=== PATIENT | male | born 1980 | race Caucasian/White ===

== ENCOUNTER 2019-08-10 12:17 | Inpatient (IN) | payer OTHER ==
[~2019-08-10] VITALS: Ht 182.9 cm; Wt 105.0 kg
[2019-08-10] VITALS (7 sets, daily range): BP systolic 90–113; BP diastolic 48–79; Ht 182.9 cm; Wt 105.0 kg
--- NOTE | 2019-08-10 12:29 | NUR ---
BROUGHT IN BY AMBULANCE, PARAMED STATED PT WAS UNRESPONSIVE AND PULSLESS AND APNEIC,CPR STARTED ,WAS GIVEN 12 MGS NARCAN,UK=[id number] ON EMS ARRIVAL PT WAS FOUND MUMBLING AND SPONTANOUS RESPIRATION, ON ARRIVAL TO ER AWAKE ALERT, ANSWERS QUESTIONS PROPERLY.CALCULATION REVIEWER IN ST,RESP. EASY,SKIN WARM AND DRY TO TOUCH,
--- NOTE | 2019-08-10 12:35 | NUR ---
STATED FEELS NAUSEATED,
[2019-08-10 13:21] LABS: BASOPHIL % 0.5 % (0-2); PLATELET COUNT 172 x10^3mcL (130-400); RED CELL DISTRIBUTION WIDTH 12.9 % (11.5-14.5)
--- NOTE | 2019-08-10 13:34 | NUR ---
POST BLOOD GASES PLACE VIA RESPIRONIC VENTILATOR WITH 100%OXYGEN,EPAP 6,RESPIRATORY RATE 18. 8
--- NOTE | 2019-08-10 13:52 | NUR ---
VOMITTED BROWNISH SECRETIONS IN LARGE AMOUNTS,MEDICATED WITH ZOFRAN
[2019-08-10 13:53] LABS: CALCIUM 8.8 mg/dL (8.5-10.1); CARBON DIOXIDE 24.5 mmol/L (21-32); CHLORIDE SERUM 101 mmol/L (98-107); GFR1 > 60 mL/min; GLUCOSE SERUM 116 mg/dL (74-106); POTASSIUM SERUM 5.4 mmol/L (3.5-5.1); SODIUM SERUM 138 mmol/L (136-145)
[2019-08-10 13:58] LABS: ALBUMIN 4.1 g/dL (3.4-5.0); ALKALINE PHOSPHATASE 48 U/L (46-116); ALT/SGPT 121 U/L (16-63); AST/SGOT 78 U/L (15-37); BILIRUBIN TOTAL 0.56 mg/dL (0.20-1.00); TOTAL PROTEIN, SERUM 7.8 g/dL (6.4-8.2)
--- NOTE | 2019-08-10 14:30 | NUR ---
PT TAKEN TO CT, VIA RETHEL.
--- NOTE | 2019-08-10 14:35 | NUR ---
PT ON FULL CM WHILE IN CT, I ACCOMPANIED.
--- NOTE | 2019-08-10 14:40 | NUR ---
PT THRASHING IN CT, STS REPORTS PAIN TO BACK, ATTEMPTED TO DEESCALATE PT MULTIPLE TIMES WITH NO SUCCESS. DR JOHNSON MADE AWARE STS OK TO MEDICATE PT WITH 2MG IVP ATIVAN.
--- NOTE | 2019-08-10 14:47 | NUR ---
PT RETURNED TO BED 1, DR JOHNSON AT BEDSIDE FOR INTUBATION, RT MING, JULIAN DONOVAN, AND EMT KATINA AT BEDSIDE. PT ON FULL CM, CONTINUES TO GRUNT IN PAIN.
--- NOTE | 2019-08-10 15:15 | NUR ---
RECEIVED INTUBATED,RESTLESS IN BED,BLOOD TINGED SPUTUM SUCTIONED VIA ETT, ON DIPROVAN 15MCG/KGM/MINUTENGTUBE PATENT, GARCIA DRAINING,
--- NOTE | 2019-08-10 15:30 | NUR ---
VERY RESTLESS IN BED,SOFT RESTRAINTS APPLIED, MEDICATED WITH VERSED,
[2019-08-10 16:05] LABS: UA SPECIFIC GRAVITY 1.015 (1.005-1.035); microscopic required? YES; urine erythrocyte 3+ (NEGATIVE)
--- NOTE | 2019-08-10 16:17 | NUR ---
DR SAUER PULMONARY DR IN ER TO EVALUATE
[2019-08-10 16:22] LABS: AMPHETAMINE QUAL UR NONE DETECTED (See below)
--- NOTE | 2019-08-10 17:08 | NUR ---
UNDER STERILE FIELD CVP LINE INSERTED BY DR PATTERSON IN RT JUGULAR VEIN,,MEDICATED WITH VERSED 2 MGS PRIOR TO INSERTION CVP LINE
--- NOTE | 2019-08-10 17:11 | NUR ---
DR JAMES INSERTING ARTERIAL LINE IN RT FEMEROL ARTERY,
--- NOTE | 2019-08-10 17:19 | NUR ---
DURING ARTERIAL LINE INSERTION PT STARTED TO MOVE MEDICATED WITH VERSED 2MGS
--- NOTE | 2019-08-10 17:41 | NUR ---
UNSUCCESSFUL INSERTION OF ARTERIAL LINE IN RT FEMORAL ARTERY,NOW TRYING LT SIDE
--- NOTE | 2019-08-10 17:48 | NUR ---
MOVING LEGS DURING PROCEDURE, MEDICATED WITH 2 MGS VERSED
--- NOTE | 2019-08-10 19:40 | NUR ---
RECEIVED PT FROM ER ACCOMPANIED BY SONJA RN AND NIKO RN, NONI EMT, MEL, RT. PT TRANSFERRED TO ICU BED 2 WITH FULL ASSIST, ATTACHED TO FULL SHOP TEACHER AND CONTINUOUS PULSE OXIMETRY. PT BED HOB ELEVATED 30 DEGREES, BED AT LOWEST SETTTING, CALL LIGHT WITHIN REACH. RECEIVED PT INTUBATED AND SEDATED ON PROPOFOL GTT @ 10 MCG/KG/MIN AND VERSED GTT @ 1 MG/HR, RSS=4 FROM ER. PT RESPONDS TO TACTILE STIMULI, ABLE TO RESPOND TO SIMPLE COMMANDS. PUPILS 3MM SLUGGISH RESPONSE TO LIGHT B/L, PERRLA. PT INTUBATED TO VENT, INTACT/SECURED. LIJ, TLC, CDI, AWAITING CONFIRMATION FROM XRAY. NGT TO LEFT NARE INTACT/SECURED, BROWN DRAINAGE NOTED IN TUBING. TRACHEA MIDLINE, NO DRAINAGE TO EENT.7.5 ETT, 23 LL. ORAL CARE PROVIDED PER VAP PROTOCOL. VENT SETTINGS PCV-AC MODE, FIO2 80%, RATE 16, PEEP 7, PRESSURE 22. LUNG SOUNDS COARSE BILATERALLY. CHEST RISE/FALL SYMMETRIC, E/U VENTED BREATHING.S1/S2 SOUNDS. NO S/S OF CHEST PAIN.SKIN COLOR CONSISTENT WITH ETHNICITY, CAP REFILL <3 X4 EXTREMITIES, PULSES PALPABLE WEAK TO BUE/BLE.GEN WEAKNESS, BED REST. NO CONTRACTURES/DEFORMITIES. PT ON TURN SCHEDULE Q2H. SOFT WRIST RESTRAINTS TO BUE, SKIN/PULSE WNL, PT REACHES FOR ETT AND EQUIPMENT WHEN OFF. JOINTS INTACT.HYPOACTIVE BOWEL SOUNDS X4 QUADRANTS, ABD SOFT/ROUND. NO BM.F/C DRAINING TO GRAVITY YANCY URINE INTACT/SECURED FROM ER. NO PENILE EDEMA OR DISCHARGE NOTED.SKIN INTACT, WARM/DRY TO TOUCH. NOTED GAUZE TO RIGHT AND LEFT FEMORAL SITES, S/P UNSUCCESSFUL ATTEMPTS FROM DR. PATTERSON, NO ACTIVE BLEED.PT SEDATED, UNABLE TO FULLY ASSESS. 2 CIM GUARDS AT BEDSIDE PER PROTOCOL. NO S/S OF N/V. WILL CONT TO MONITOR.
--- NOTE | 2019-08-10 19:40 | NUR ---
CT SCAN DONE ON THE WAY TO ICU.DIPROVAN TITRATED DOWN TO 10 MCG/KGM/MINT
[2019-08-10] MEDS ORDERED: NIFEDIPINE60 MG PO (19:42)
[2019-08-10] MEDS ORDERED: LASIX20 MG PO (19:42)
--- NOTE | 2019-08-10 20:10 | NUR ---
CONTACTED DR. HARPER ON PT'S CENTRAL LINE PLACEMENT AND NGT PLACMENT, PER DR. MEREDITH FRASER TO USE. INFORMED HIM ON PT'S BROWN DRAINAGE TO NGT, PER DR. MEREDITH FRASER TO INITIATE TUBE FEEDING.
--- NOTE | 2019-08-10 20:12 | NUR ---
FENTANYL GTT INITATED @ 1 MCG/KG/HR TO ACHEIVE RSS=4. PROPOFOL GTT D/CD AT THIS TIME.
--- NOTE | 2019-08-10 21:14 | NUR ---
CONTACTED DR. PATTERSON VIA TELEPHONE ON PT'S ABG. PER DR. PATTERSON ORDER ABG @ 0843 08/11/19, CHANGE RATE TO 18 AND PRESSURE CHANGE TO 24. RELAYED INFORMATION TO RT DE LA ROSA.
--- NOTE | 2019-08-10 21:19 | NUR ---
RT DE LA ROSA AT BEDSIDE CHANGED VENT RATE TO 18 AND PRESSURE TO 24.
--- NOTE | 2019-08-10 21:19 | NUR ---
DECREASED FIO2 FROM 80% TO 60% POST ABG RESULTS. PER INCREASED RATE FROM 16 TO 18 AND PC FROM 22 TO 24.
--- NOTE | 2019-08-10 22:46 | NUR ---
NORMAL SALINE GTT INITATED @ 150 CC/HR.
[2019-08-11] VITALS (18 sets, daily range): BP systolic 84–111; BP diastolic 45–64
--- NOTE | 2019-08-11 00:30 | NUR ---
VERSED TITRATED TO 2 MG/HR, RSS=1, PT RESTLESS AT THIS TIME.
--- NOTE | 2019-08-11 00:35 | NUR ---
TUBE FEEDING VITAL AF 1.2 INITIATED @ 10 ML/HR, FWF 50 ML Q 4 H, PER MD ORDER.
--- NOTE | 2019-08-11 04:35 | NUR ---
TUBE FEEDING VITAL AF 1.2 TITRATED TO 20 ML/HR, GRV=0 ML. NO S/S OF N/V.
--- NOTE | 2019-08-11 04:55 | NUR ---
PROVIDED PT WITH TOTAL BED BATH, GARCIA CARE, CHUCKS, GOWN, LINEN CHANGED.
[2019-08-11 05:05] LABS: BASOPHIL % 0.2 % (0-2); RED CELL DISTRIBUTION WIDTH 13.3 % (11.5-14.5)
[2019-08-11 05:40] LABS: PLATELET COUNT 110 x10^3mcL (130-400)
[2019-08-11 05:54] LABS: CARBON DIOXIDE 26.2 mmol/L (21-32); POTASSIUM SERUM 4.1 mmol/L (3.5-5.1)
[2019-08-11 05:55] LABS: CALCIUM 7.5 mg/dL (8.5-10.1); CREATININE SERUM 1.4 mg/dL (0.7-1.3)
--- NOTE | 2019-08-11 07:15 | NUR ---
GAVE REPORT TO PANFILO JORDAN. UPDATES PROVIDED, QUESTIONS ANSWERED.
--- NOTE | 2019-08-11 07:42 | NUR ---
AFTER REVIEW OF MEDICAL RECORDS, PATIENT HAS RECEIVED INFLUENZA VACCINE ON 06/14/19.
--- NOTE | 2019-08-11 08:33 | NUR ---
DR PATTERSON IN TO SEE AND ASSESS PATIENT. VENT FIO2 DECREASED FROM 60% TO 50 % AND ABGS ORDERED FOR ONE HOUR. PT FLUIDS DECREASED FROM 150 ML/HR TO 75 ML/HR. TUBE FEED ALSO INCREASED TO 30 ML/HR W/ 50 ML FWF Q4H. RESIDUAL CHECKED =0.
--- NOTE | 2019-08-11 14:10 | NUR ---
DR HARPER AT BEDSIDE TO SEE AND ASSESS PATIENT. DISCUSSED POSSIBLE EXTBUATION TOMORROW. NO CHANGES MADE TO PLAN OF CARE.
--- NOTE | 2019-08-11 16:49 | NUR ---
PT TEMP IS 100.6 AXILLARY TYLENOL GIVEN. WILL REASSESS.
--- NOTE | 2019-08-11 19:14 | NUR ---
REPORT GIVEN TO PUMA JORDAN. PATIENT RESTING COMFORTABLY IN BED WITH CIM OFFICERS AT BEDSIDE. ALL NEEDS MET. CENTRAL TO RIJ IS PATENT AND INFUSING NS @ 75 ML/HR, VERSED @ 2MG/HR AND FENTANYL 1 MCG/KG/HR. 7.[address] AND SECURED @ 24CM LIPLINE. NGT TO LT NARE INFUSING VITAL AF @ 30 ML GOAL W/ 50 ML FWF Q4H. VENT SETTINGS: PRESSURE 24, PEEP 7, RATE 18, FIO2 35%. BILAT SOFT WRIST RESTRAINTS IN PLACE. SCDS IN PLACE. SHACKLE TO LT ANKLE. GARCIA IN PLACE DRAINING YANCY URINE. ALL QUESTIONS AND CONCERNS ADDRESSED. ALL CARES ENDORSED.
--- NOTE | 2019-08-11 19:55 | NUR ---
PT PLACED ON SEDATION VACATION. PT TOLERATING WELL, INSTRUCTED NOT TO PULL AT TUBES OR LINES AND PT IN AGREEMENT.
--- NOTE | 2019-08-11 20:30 | NUR ---
PT SEDATION RESUMED. PT TOLERATED WELL. RSS 3.
--- NOTE | 2019-08-11 21:46 | NUR ---
REPORT RECIEVED FROM JULIAN WHITTAKER. NURSING UPDATES POC DISCUSSED. SEE SHIFT ASSESSMENT FOR ASSESSMENT.
--- NOTE | 2019-08-11 22:00 | NUR ---
TITRATED VERSED FROM 2MG/HR TO 4MG/HR PER PT AGITATION.
--- NOTE | 2019-08-11 23:00 | NUR ---
TITRATED VERSED FROM 4MG/HR TO 6MG/HR PER PT AGITATION.
[2019-08-12] VITALS (18 sets, daily range): BP systolic 91–133; BP diastolic 49–99
--- NOTE | 2019-08-12 00:33 | NUR ---
PT NOTED W/ PULLING OUT NG TUBE. NO S/S OF DISTRESS. TUBE FEEDING STOPPED PT ACKNOWLEDGED HE IS OK. NO BLEEDING. WILL ENDORSE.
--- NOTE | 2019-08-12 00:35 | NUR ---
TITRATED VERSED FROM 6MG/HR TO 8MG/HR PER PT AGITATION.
--- NOTE | 2019-08-12 01:58 | NUR ---
NO ACUTE CHANGES. WILL CONT TO MONITOR.
[2019-08-12 05:11] LABS: BASOPHIL % 0.1 % (0-2); RED CELL DISTRIBUTION WIDTH 13.1 % (11.5-14.5)
[2019-08-12 05:21] LABS: PLATELET COUNT 99 x10^3mcL (130-400)
[2019-08-12 06:00] LABS: ALKALINE PHOSPHATASE 44 U/L (46-116); ALT/SGPT 70 U/L (16-63); AST/SGOT 53 U/L (15-37); BILIRUBIN TOTAL 1.27 mg/dL (0.20-1.00); CALCIUM 8.7 mg/dL (8.5-10.1); CHLORIDE SERUM 105 mmol/L (98-107); CREATININE SERUM 1.1 mg/dL (0.7-1.3); GFR1 > 60 mL/min; GLUCOSE SERUM 144 mg/dL (74-106); PHOSPHOROUS 1.8 mg/dL (2.5-4.9); POTASSIUM SERUM 4.2 mmol/L (3.5-5.1); SODIUM SERUM 138 mmol/L (136-145); TOTAL PROTEIN, SERUM 6.6 g/dL (6.4-8.2)
[2019-08-12 06:07] LABS: ALBUMIN 2.9 g/dL (3.4-5.0)
--- NOTE | 2019-08-12 06:13 | NUR ---
PT W/ ATTEMPT TO SELF EXTUBATE. INSTRUCTED NOT TO DO SO. PT SOMEHOW SQUEEZED R HAND OUT OR RESTRAINT W/ HAND ON ETT BUT UNABLE TO PULL. VERSED TITRATED FROM 8MG/HR TO 10MG/HR PER PT AGITATION AND ATTEMPT AT EXTUBATION. WILL ENDORSE.
--- NOTE | 2019-08-12 07:02 | NUR ---
RECEIVED REPORT FROM PUMA JORDAN. PATIENT SLEEPING COMFORTABLY IN BED WITH SCDS IN PLACE AND CIM OFFICERS AT BEDSIDE. NO NEEDS IDENTIFIED. 7.[address] AND SECURED AT 24CM LIPINE. VENT SETTINGS: PRESSURE CONTROL, PRESSURE 24, PEEP 7, RATE 18, FIO2 35%. GARCIA IN PLACE DRAINING YANCY URINE. NGT REMOVED BY PATIENT PER MARIZA RN AND TUBE FEED STOPPED AT THAT TIME. BILAT SOF WRIST RESTRAINTS IN PLACE WITH CIRCULATION MAINTAINED. SHACKLE NOTED TO LT ANKLE. CENTRAL LINE TO RIJ IS PATENT AND INFUSING NS @ 75 ML/HR, VERSED @ 10 ML/HR AND FENTANYL @ 1MCG/KG/HR. SALINE LOCKS ALSO NOTED TO RAD AND LAC. NO REDNESS OR SIGNS IF INFILTRATION. NOTED. ALL QUESTIONS AND CONCERNS ADDRESSED.
--- NOTE | 2019-08-12 09:48 | NUR ---
PHOTOGRAPH FINISHER KARINA IN TO TITRATE FENTANYL TO 0.75 MCG/KG/HR AND VERSED TO 4ML/HR. PT ALERT AND ANXIOUS BUT EASILY CALMED AND BACK TO SLEEP. ALL NEEDS MET
--- NOTE | 2019-08-12 10:37 | NUR ---
PATIENT PLACED ON SEDATION VACATION. ALERT AND ORIENTED. PT PLACED ON CPAP AND ENCOURAGED TO DEEP BREATHE. PT DID NOT TOLERATE AND O2 SAT % DECREASED TO 77%. PT PLACED BACK ON PRESSURE CONTROL AND SEDATION RESUMED.VERSED @ 5ML/HR AND FENTANYL @ 1 MCG/KG/HR. PATIENT NOW RESTING COMFORTABLY IN BED.
--- NOTE | 2019-08-12 14:17 | NUR ---
DR PATTERSON IN TO SEE AND ASSESS PATIENT. UPDATED ON PATIENT STATUS.
--- NOTE | 2019-08-12 14:21 | NUR ---
DR TRUJILLOANG IN TO SEE AND ASSESS PATIENT. ORDERED TO REINSERT NGT AND RESUME TUBE FEED.
--- NOTE | 2019-08-12 17:58 | NUR ---
IN WITH STADIUM MANAGER KARINA. OGT INSERTED AND SECURED TO ETT. STAT KUB ORDERED.
--- NOTE | 2019-08-12 18:58 | NUR ---
KUB RESULTS IN. OGT PLACEMENT CONFIRMED. TUBE FEED RESUMED @ 30 ML W 50 ML FWF Q4H.
--- NOTE | 2019-08-12 19:05 | NUR ---
REPORT RECIEVED FROM JULIAN WHITTAKER. NURSING UPDATES. POC DISCUSSED. SEE SHIFT ASSESSMENT FOR ASSESSMENT.
--- NOTE | 2019-08-12 19:30 | NUR ---
REPORT GIVEN TO PUMA JORDAN. ALL QUESTIONS AND CONCERNS ADDRESSED. ALL CARES ENDORSED.
--- NOTE | 2019-08-12 21:00 | NUR ---
TITRATED VERSED FROM 6MG/HR TO 8MG/HR PER PT AGITATION AND ATTEMPTS TO PULL OUT ETT AND RESTRAINTS. WILL CONT TO MONITOR.
--- NOTE | 2019-08-12 22:47 | NUR ---
TITRATED VERSED FROM 8MG/HR TO 10MG/HR PER PT AGITATION AND ATTEMPTS TO PULL OUT ETT AND RESTRAINTS. WILL CONT TO MONITOR.
[2019-08-13] VITALS (12 sets, daily range): BP systolic 94–150; BP diastolic 52–93
--- NOTE | 2019-08-13 | NUR ---
PT RESTING CALMLY IN BED. NO ACUTE CHANGES. WILL CONT TO MONITOR.
--- NOTE | 2019-08-13 02:49 | NUR ---
TITRATED VERSED FROM 10MG/HR TO 8MG/HR PER PT RESTING CALMLY. WILL CONT TO MONITOR. WILL CONT TO MONITOR.
--- NOTE | 2019-08-13 03:11 | NUR ---
TITRATED VERSED FROM 8MG/HR TO 6MG/HR PER TRENDING DOWN BP AND HR. WILL CONT TO MONITOR. RSS 4.
--- NOTE | 2019-08-13 04:00 | NUR ---
PT RESTING CALMLY IN BED NO ACUTE CHANGES.
[2019-08-13 05:42] LABS: ALKALINE PHOSPHATASE 34 U/L (46-116); ALT/SGPT 56 U/L (16-63); AST/SGOT 36 U/L (15-37); BILIRUBIN TOTAL 0.8 mg/dL (0.20-1.00); CALCIUM 8.5 mg/dL (8.5-10.1); CARBON DIOXIDE 28.7 mmol/L (21-32); CHLORIDE SERUM 105 mmol/L (98-107); CREATININE SERUM 0.9 mg/dL (0.7-1.3); GFR1 > 60 mL/min; GLUCOSE SERUM 130 mg/dL (74-106); POTASSIUM SERUM 3.9 mmol/L (3.5-5.1); RED CELL DISTRIBUTION WIDTH 13.1 % (11.5-14.5); SODIUM SERUM 140 mmol/L (136-145); TOTAL PROTEIN, SERUM 6.9 g/dL (6.4-8.2)
[2019-08-13 05:43] LABS: MAGNESIUM 2.3 mg/dL (1.8-2.4); PHOSPHOROUS 3.4 mg/dL (2.5-4.9)
[2019-08-13 05:45] LABS: ALBUMIN 3.1 g/dL (3.4-5.0)
[2019-08-13 06:06] LABS: PLATELET COUNT 122 x10^3mcL (130-400)
[2019-08-13 06:07] LABS: BASOPHIL % 0 % (0-2)
--- NOTE | 2019-08-13 07:17 | NUR ---
RECEIVED REPORT FROM PUMA JORDAN. PATIENT RESTING COMFORTABLY IN BED WITH CIM OFFICERS AT BEDSIDE. 7.[address] WITH VENT SETTINGS: PRESSURE CONTROL, PRESSURE 24, RATE 18, PEEP 7, FIO2 35%. OGT IN PLACE AND SECURED TO ETT. GARCIA IN PLACE DRAINING YANCY URINE. SCDS IN PLACE. SHACKLE NOTED TO RT ANKLE. BILAT SOFT WRIST RESTRAINTS WITH CIRCULATION MAINTAINTED. CENTRAL LINE TO RIJ IS PATENT AND INFUSING VERSED @ 8ML/HR AND FENTANYL @ 1 MCG/KG/HR. DRESSING CDI. ALL QUESTIONS AND CONCERNS ADDRESSED.
--- NOTE | 2019-08-13 07:19 | NUR ---
REPORT GIVEN TO JULIAN WHITTAKER. RELIEVED OF NURSING CARE.
--- NOTE | 2019-08-13 07:30 | NUR ---
RT AT BEDSIDE TO ATTEMPT CPAP MODE. PT SEDATION STOPPED. CPAP @ 10/5 WITH FIO2 @ 35%. PT TOLERATING WELL. WILL CONTINUE TO MONITOR.
--- NOTE | 2019-08-13 08:59 | NUR ---
DR PATTERSON AT BEDSIDE TO SEE AND ASSESS PATIENT. UPDATED ON PATIENT STATUS. RT CALLED TO BEDSIDE. ETT AND OGT REMOVED @ 0900. NASAL CANNULA APPLIED @ 2LPM. PT SUCTIONED AND IS NOW RESTING COMFORTABLY IN BED. ORDERED TO D/C ALL SEDATIVES. VITALS STABLE. PT RESPIRATIONS 19 AND 02 SAT IS 94%.
--- NOTE | 2019-08-13 09:05 | NUR ---
PER DR PATTERSON, PERFORM SWALLOW EVAL IN ONE HOUR AND IF TOLERATED, PT TO BE STARTED ON CLEAR LIQUID DIET.
--- NOTE | 2019-08-13 10:10 | NUR ---
PT PASSED BEDSIDE SWALLOW EVAL. ICE CHIPS AND JELLO GIVEN.
--- NOTE | 2019-08-13 10:58 | NUR ---
PATIENT HR ELEVATED IN 140'S. PT REPORTS ANXIETY AND STATES HE FEELS THE [facility] OFFICERS ARE GOING TO HARM US. PT APPEARS PARANOID AND IS ASKING FOR A PRIVATE PLACE TO TALK. DR PATTERSON CALLED TO NOTIFY.
--- NOTE | 2019-08-13 11:51 | NUR ---
Intervention/RDN Recommendation(s): 1. Recommend continuing clear liquid diet, advancing to full liquid as tolerated, and then to regular as tolerated.
--- NOTE | 2019-08-13 11:51 | NUR ---
Initial Nutrition Assessment: Dx: ALOC, respiratory failure, return of spontaneous circulation PMHx: not available PSHx: not available Labs: (08/13) na 140, K 3.9, Glu 130 H, BUN 21 H, Cr 0.9, H/H 11.8/35 Meds: folic acid, Pepcid, sodium chl 0.9%, solu-medrol, sublimaze, Tylenol, vancocin, vancomycin, versed, vit B1, zosyn Diet: Pt started on CL diet on 08/13 at lunch. Previous Nutrition Support: TF Vital AF 1.2 at 30 mL/hr via NGT. FWF 10 mL Q4H (60 mL). This provides 864 kcal and 54 gm protein which meets 43% est kcal needs and 52% est protein needs; inadequate. TF Intake: (08/13) 300 mL, (08/12) 637 mL, (08/11) 50 mL GTF Residuals: 0 mL Ht: 182.88 cm / 72 inches / 6'0" Wt: 104 kg / 228 pounds BMI: 31.3 kg/m2, obesity class 1 IBW: 178 pounds / 81 kg %IBW: 128% AdjBW: 191 pounds / 87 kg UBW: unable to obtain Age: 39 Food Allergies: unable to obtain Skin: skin color consistent with ethnicity, Wy[place]: Edema: none GI: hypoactive bowel sounds x 4 quadrants, abd soft/round, no BM. Last BM: prior to admission Pt admitted with dx: s/p CPR, possible recreation drug overdose, acute respiratory failure (on vent, orally intubated), ARDS, asp PNA, poss SIRS, ALOC, mild hyperkalemia, poss drug abuse, heroin abuse (poss non cardiogenic edema) RD Note (08/13): RDN visited with Pt. Pt seen up, awake in bed. TF was not running. Pt is s/p extubation. Pt reported to have tolerated swallow eval and may be started on CL. RDN explained to Pt that if he shows that he can tolerate clear liquids, then he may be advanced to full liquids, and then advanced to solid regular. Pt verbalizes understanding. Pt denies further questions for RDN at this time. Per nursing, Pt was given ice chips, jello, water, and pudding; Pt tolerated well. Nursing Trigger - TF Problem with: N/V/D/C: Pt denies Problems with: Chewing: No Swallowing: No Current appetite: Feeling hungry, feels like he would be able to tolerate solid food Recent wt change: None Vitamin/Supplement use: None Special diet at home: Regular Physical activity: Some walking Nutrition education given (specify specific nutrition education and handout given): N/A Food-drug interactions? N/A Education given? N/A Estimated Nutritional Needs Based on adjusted body weight of 87 kg. For those on ventilator support: Ventilator Settings 10.1 L/min Temperature: 99.2 F / 37.3 C Energy: 2013 vs. 9825-1869 kcal/d (PSU 2003b vs. 25-30 kcal/kg for vent support, SIRS) Protein: 104-130 gm/d (1.2-1.5 gm/kg for vent support, SIRS) Fluid: 7424-3181 mL/d (1 mL/kcal) or per MD. Nutrition Diagnosis 1. Inadequate enteral infusion related to current low rate of TF as evidenced by Pt meeting < 80% estimated needs. Intervention/RDN Recommendation(s): 1. Recommend continuing clear liquid diet, advancing to full liquid as tolerated, and then to regular as tolerated. Monitor/Evaluate Goal: Intake via PO route to meet at least 80% of estimated needs with acceptable tolerance within 2-3 days. Monitor: nutrition support tolerance, Labs, GI function, Skin integrity, Weights. F/U in 2-3 days as high risk (08/15-)
--- NOTE | 2019-08-13 14:00 | NUR ---
GUARDS AT BEDSIDE. PATIENT AWAKE, ALERT AND CALM. EDUCATED PATIENT REGARDING PULLING ON TUBING AND LINES. PATIENT VERBALIZED AN UNDERSTANDING AND ALSO AGREED TO USE CALL LIGHT WHEN NEEDING ASSISTANCE. RESTRAINTS REMOVED AT THIS TIME.
--- NOTE | 2019-08-13 14:55 | NUR ---
IN TO REMOVE GARCIA CATHETER. 650 ML YELLOW URINE EMPTIED. 8ML FLUID REMOVED FROM BALLOON AND CATHETER REMOVED. PT TOLERATED IT WELL.
--- NOTE | 2019-08-13 18:22 | NUR ---
PRECEDEX TITRATED TO 0.1 MCG/KG/HR. WILL MONITOR.
--- NOTE | 2019-08-13 19:01 | NUR ---
REPORT RECIEVED FROM JULIAN WHITTAKER. NURSING UPDATES. POC DISCUSSED. SEE SHIFT ASSESSMENT FOR ASSESSMENT.
--- NOTE | 2019-08-13 19:24 | NUR ---
REPORT GIVEN TO PUMA JORDAN. ALL QUESTIONS AND CONCERNS ADDRESSED. ALL CARES ENDORSED.
--- NOTE | 2019-08-13 22:00 | NUR ---
NO ACUTE CHANGES. PT RESTING CALMLY IN BED. WILL CONT TO MONITOR.
[2019-08-14] VITALS (7 sets, daily range): BP systolic 127–149; BP diastolic 70–90
--- NOTE | 2019-08-14 | NUR ---
NO ACUTE CHANGES. PT RESTING CALMLY IN BED. WILL CONT TO MONITOR.
--- NOTE | 2019-08-14 01:41 | NUR ---
NO ACUTE CHANGES. PT RESTING CALMLY IN BED. WILL CONT TO MONITOR.
--- NOTE | 2019-08-14 03:00 | NUR ---
PT RESTING CALMLY IN BED. NO ACUTE CHANGES. WILL CONT TO MONITOR.
--- NOTE | 2019-08-14 05:10 | NUR ---
PT RESTING CALMLY IN BED. NO ACUTE CHANGES. WILL CONT TO MONITOR.
[2019-08-14 05:14] LABS: BASOPHIL % 0.2 % (0-2); RED CELL DISTRIBUTION WIDTH 12.8 % (11.5-14.5)
[2019-08-14 05:16] LABS: PLATELET COUNT 128 x10^3mcL (130-400)
[2019-08-14 05:29] LABS: ALKALINE PHOSPHATASE 35 U/L (46-116); ALT/SGPT 45 U/L (16-63); AST/SGOT 21 U/L (15-37); BILIRUBIN TOTAL 0.57 mg/dL (0.20-1.00); CALCIUM 8.6 mg/dL (8.5-10.1); CHLORIDE SERUM 105 mmol/L (98-107); CREATININE SERUM 0.8 mg/dL (0.7-1.3); GFR1 > 60 mL/min; GLUCOSE SERUM 121 mg/dL (74-106); PHOSPHOROUS 4.2 mg/dL (2.5-4.9); POTASSIUM SERUM 4.2 mmol/L (3.5-5.1); SODIUM SERUM 140 mmol/L (136-145); TOTAL PROTEIN, SERUM 6.5 g/dL (6.4-8.2)
--- NOTE | 2019-08-14 07:30 | NUR ---
RECEIVED PT FROM HOG MAN, PT RESTING IN BED. AWAKE,ALERT AND ORIENTED X4. DENIES ANY PAIN. STABLE. V/S STABLE. ASSESSED AND DOCUMENTED. SAFTEY PRECAUTIONS ARE IN PLACE. WILL MONITOR.
--- NOTE | 2019-08-14 08:30 | NUR ---
PT GOT UP TO USE BSC. TOLEREATED WELL. HAD BM AND VOIDED. STABLE. GAURDS AT BEDSIDE.
--- NOTE | 2019-08-14 09:05 | NUR ---
DECREASED FLOW ON NASAL CANNULA FROM 3 L/MIN TO 2 L/MIN.
--- NOTE | 2019-08-14 12:30 | NUR ---
PT SITTING IN THE BED. EATING LUNCH. STABLE. DENIES ANY PAIN. GAURDS AT BEDSIDE. STABLE. RT PUT PT ON RA AND SATTING 91 TO 93%. NO SOB NOTED. ASSESSED AND DOCUMENTED. SAFTEY PRECAUTIONS ON. WILL MONITOR.
--- NOTE | 2019-08-14 16:00 | NUR ---
PT RESTING IN BED COMFORTABLY, DENIES ANY PAIN. STABLE. ASSESSED AND DOCUMENTED. GAURDS AT BEDSIDE. V/S STABLE. SAFTEY PRECAUTIONS ARE IN PLACE. WILL MONITOR.
--- NOTE | 2019-08-14 17:15 | NUR ---
PT HAVE ORDER TO TRANSFER PT TO TELE. CALL AND GAVE REPORT TO JULIAN SORENSEN. PT IS STABLE. DENIES ANY PAIN. V/S STABLE.
--- NOTE | 2019-08-14 17:29 | NUR ---
PT IS STABLE, TRANSFERING PT TO ROOM 226B WITH GAROLANDODS.
--- NOTE | 2019-08-14 17:59 | NUR ---
RECEIVED PATIENT TRANSFER FROM ICU VIA , AA/O X4, DENIES PAIN AT THIS TIME. AMBULATORY. VS STABLE. RIJ INTACT AND PATENT, CONNECT TO IV PUMP AND ZOSYN IVPB INFUSING AT 100ML/HR. CALL LIGHT WITHIN REACH.
[2019-08-15 05:40] VITALS: BP 131/78
[2019-08-15 06:30] LABS: BASOPHIL % 0.2 % (0-2); PLATELET COUNT 148 x10^3mcL (130-400)
[2019-08-15 06:58] LABS: CARBON DIOXIDE 31.5 mmol/L (21-32); CHLORIDE SERUM 102 mmol/L (98-107); CREATININE SERUM 0.9 mg/dL (0.7-1.3); GFR1 > 60 mL/min; GLUCOSE SERUM 104 mg/dL (74-106); POTASSIUM SERUM 4.7 mmol/L (3.5-5.1); SODIUM SERUM 140 mmol/L (136-145)
--- NOTE | 2019-08-15 07:30 | NUR ---
PT IS AAOX4. RESP EVEN AND UNLABORED. LUNG SOUNDS CTA. ON R/A. NO COUGH OR SOB NOTED. TELE [address] READING NSR. PICC LINE IN PLACE TO RIJ WITH 3 LUMENS, FLUSHED WITH GOOD BLOOD RETURN. SITE WNL, COVERED WITH CDI OCCULSIVE DRESSING. NO S/S OF INFECTION NOTED. PT DENIES PAIN AT THIS TIME. CALL LIGHT WITHIN REACH. BED IN LOWEST POSITION. 2 GUARDS AT BEDSIDE ON ONE TO ONE SUPERVISION.
[2019-08-15 08:17] VITALS: BP 131/81
--- NOTE | 2019-08-15 11:23 | NUR ---
SCHEDULED MED GIVEN AND TOLERATED WELL. PT DENIES PAIN. CALL LIGHT WITHIN REACH.
[2019-08-15 12:00] VITALS: BP 149/75
--- NOTE | 2019-08-15 12:33 | NUR ---
SCHEDULED MED GIVEN AND TOLERATED WELL. PT DENIES PAIN AND DISCOMFORT. CALL LIGHT WITHIN REACH. 2 GUARDS AT BEDSIDE.
--- NOTE | 2019-08-15 14:04 | NUR ---
PT IS SLEEPING BUT EASILY AROUSABLE. RESP EVEN AND UNLABORED. NO DISTRESS NOTED. 2 GUARDS AT BEDSIDE ON ONE TO ONE SUPERVISION.
[2019-08-15 17:12] VITALS: BP 151/85
--- NOTE | 2019-08-15 18:19 | NUR ---
PT IS AAOX4. PICC LINE PLACED TO NEJ WITH 3 LUMENS, PATENT AND FLUSHED. TELE [address] READING NSR. RESP EVEN AND UNLABORED. NO DISTRESS NOTED. PT DENIES PAIN. CALL LIGHT WITHIN REACH. BED IN LOWEST POSITION. WILL ENDORSE ALL CARE TO NOC RN.
--- NOTE | 2019-08-15 19:25 | NUR ---
PT RECEIVE A/O X4, ABLE TO MAKE NEEDS KNOWN. TELE #6, DENIES ANY CP/PRESSURE. PULSES PALPABLE, NO EDEMA PRESENT. BREATHING IS EVEN AND UNLABORED ON RA, NO RESP DISTRESS OBSERVED. ABD SOFT AND NONDISTENDED, DENIES N/V. VOIDS FREELY, BRP. AMBULATORY W/ STEADY GAIT. SKIN IS WARM AND DRY, INTACT. PT DENIES HAVING ANY PAIN AT THIS TIME. RIJ CENTRAL LINE IN PLACE, TRIPLE LUMEN, ALL PORTS PATENT, SITE FREE FROM REDNESS OR SWELLING, DRSG CDI. NO ACUTE DISTRESS OBSERVED. BED IN LOWEST SETTING, SIDE RAILS UP X2, CALL LIGHT WITHIN REACH. WILL CONT TO MONITOR.
[2019-08-15 20:01] VITALS: BP 139/78
--- NOTE | 2019-08-16 03:05 | NUR ---
PT C/O "FEELING SICK, COLD, AND HAVING A HEADACHE." PRN TYLENOL OFFERED, PT REFUSED AT THIS TIME. VS: 97.7, 18 RR, 145/97 (108), 55 HR, 96% ON RA. SNACKS GIVEN PER PT'S REQUEST. NO ACUTE DISTRESS OBSERVED. RIJ CENTRAL LINE INTACT. GUARDS AT BEDSIDE. WILL CONT TO MONITOR.
[2019-08-16 05:31] VITALS: BP 145/97
[2019-08-16 06:01] VITALS: BP 145/97
--- NOTE | 2019-08-16 06:02 | NUR ---
PT SLEPT WELL THROUGHOUT THE EVENING. BREATHING IS EVEN AND UNLABORED, NO RESP DISTRESS NOTED. PT DENIES HAVING ANY PAIN AT THIS TIME. RIJ CENTRAL LINE INTACT, ALL PORTS PATENT, SITE WNL. CHG WIPES GIVEN. NO ACUTE CHANGES ENCOUNTERED DURING SHIFT. PT COMPLIANT WITH NURSING CARE. ALL NEEDS MET AND ANTICIPATED. GUARDS AT BEDSIDE. CALL LIGHT WITHIN REACH. WILL ENDORSE CARE TO AM NURSE.
[2019-08-16 06:24] LABS: CALCIUM 8.9 mg/dL (8.5-10.1); CARBON DIOXIDE 30.2 mmol/L (21-32); CHLORIDE SERUM 100 mmol/L (98-107); CREATININE SERUM 0.9 mg/dL (0.7-1.3); GFR1 > 60 mL/min; GLUCOSE SERUM 115 mg/dL (74-106); POTASSIUM SERUM 4.5 mmol/L (3.5-5.1); SODIUM SERUM 138 mmol/L (136-145)
[2019-08-16 06:51] LABS: BASOPHIL % 0.4 % (0-2); PLATELET COUNT 182 x10^3mcL (130-400); RED CELL DISTRIBUTION WIDTH 13.3 % (11.5-14.5)
--- NOTE | 2019-08-16 07:35 | NUR ---
RECEIVED PATIENT. PATIENT IN BED, EATING BREAKFAST. NO ACUTE RESP DISTRESS NOTED. REMAINS ON ROOM AIR. NO C/O PAIN AT THIS TIME. VANCOMYCIN INFUSING TO RIJ CENTRAL LINE, NO INFILTRATION NOTED. INTACT AND PATENT TRIPLE LUMEN.SAFETY PRECAUTION IN PLACE. CALL LIGHT WITHIN REACH. GUARDS AT BEDSIDE. WILL CONTINUE TO MONITOR.
[2019-08-16 09:35] VITALS: BP 122/72
--- NOTE | 2019-08-16 09:45 | NUR ---
PATIENT IN BED, SLEEPING. EASILY AROUSABLE. EDUCATED ABOUT MEDICATIONS AND PURPOSE. NO ACUTE RESP DISTRESS NOTED AT THIS TIME. REMAINS ON ROOM AIR. NO SOB NOTED. NO COMPLAINTS OR CHEST PAIN OR PRESSURE. SAFETY PRECAUTION IN PLACE. CALL LIGHT WITHIN REACH. WILL CONTINUE TO MONITOR. GUARD AT BEDSIDE.
--- NOTE | 2019-08-16 12:25 | NUR ---
PATIENT IN BED, EATING LUNCH. NO ACUTE RESP DISTRESS NOTED. NO C/O PAIN AT THIS TIME. RIJ CENTRAL LINE INTACT, NO INFILTRATION NOTED OR SIGNS OF REDNESS. SAFETY PRECAUTION IN PLACE. CALL LIGHT WITHIN REACH. INFORMED PATIENT THAT ZOSYN WILL BE ADMINISTERED SOON IT IS READY. WILL CONTINUE TO MONITOR.
[2019-08-16 13:06] VITALS: BP 126/81
--- NOTE | 2019-08-16 13:27 | NUR ---
Follow-up Nutrition Assessment: Cliff Pineda 226T-B Dx: ALOC, Respiratory failure Labs: (08/16) B, BUN:20H, Meds: Folic acid, Pepcid, Solumedrol, Tylenol, Vancocin, Vitamin B-1, Zosyn, Heparin, Diet: Regular PO intake: (08/15) 60-70%(08/16) 100% Weights: (08/16) 105kg Skin: intact Edema: none Last BM: 08/15 Per consultation report 08/15, pt with no c/o. positive for fatigue and malaise, denies chills and night sweats. Plan: broad spectrum antibiotics, drug cessation counseling and swallow evaluation. During visit, pt was seen asleep. PO intake 100% x 1 meal with no GI issues per nurse. Estimated Nutritional Needs based on ideal body weight:81kg Energy: 2025-2460kcal/day (25-30kcal/kg for maintenance) Protein: 81g/day (1g/kg for maintenance) Fluid: 2025-2460ml/day (25-30ml/kg for maintenance) Nutrition Diagnosis 1. Overweight related to excessive caloric intake as evidenced by BMI:31.4kg/m2 Intervention/RDN Recommendation(s): 1. Recommend continue with Regular diet. Monitor/Evaluate Goal: PO intakes to meet at least 75% of estimated needs with acceptable tolerance within 7 days. Monitor: PO intakes and/or nutrition support tolerance, Labs, GI function, Skin integrity, Weights. F/U in 7 days as low risk 08/23
--- NOTE | 2019-08-16 13:27 | NUR ---
1. Recommend continue with Regular diet.
--- NOTE | 2019-08-16 15:00 | NUR ---
PATIENT IN BED, WATCHING TV. NO ACUTE RESP DISTRESS NOTED. NO C/O PAIN. DISCONNECTED PATIENT FROM IV. NO COMPLAINTS OF CHEST PAIN OR PRESSURE. RIJ CENTRAL LINE INTACT, NO INFILTRATION OR REDNESS NOTED. SAFETY PRECAUTION IN PLACE. CALL LIGHT WITHIN REACH. WILL CONTINUE TO MONITOR. GUARD AT BEDSIDE.
--- NOTE | 2019-08-16 18:38 | NUR ---
PATIENT IN BED, WATCHING TV. NO ACUTE RESP DISTRESS NOTED. NO C/O PAIN. ZOSYN ABX RUNNING AT THIS TIME. NO COMPLAINTS OF CHEST PAIN OR PRESSURE. RIJ CENTRAL LINE INTACT, NO INFILTRATION OR REDNESS NOTED. SAFETY PRECAUTION IN PLACE. CALL LIGHT WITHIN REACH. GUARD AT BEDSIDE. WILL ENDORSE CARE TO PAINT STOCK CLERK NURSE.
[2019-08-16 18:46] VITALS: BP 133/75
--- NOTE | 2019-08-16 19:15 | NUR ---
REPORT RECEIVED FROM DAY SHIFT RN. PATIENT WAS SEEN RESTING COMFORTABLY IN BED. NO DISTRESS NOTED. BREATHING EVEN AND UNLABORED ON ROOM AIR. NO SOB OR RESP DISTRESS NOTED. DENIES CHEST PAIN/PRESSURE. IV TO THE [id number]. ALL PORTS PATENT AND INTACT. NO REDNESS OR SWELLING NOTED. DRESSING INTACT. NO C/O PAIN AT THIS TIME. COMFORT AND SAFETY MEASURES IN PLACE. CALL LIGHT IS WITHIN REACH. BED IS LOCKED AND IN THE LOWEST POSITION. SIDE RAILS UP X2. WILL CONTINUE TO MONITOR.
[2019-08-16 20:52] VITALS: BP 132/80
--- NOTE | 2019-08-17 01:39 | NUR ---
RESTING IN BED COMFORTABLY. GAVE CRACKERS PER REQUEST. NO DISTRESS NOTED. BREATHING EVEN AND UNLABORED ON ROOM AIR. DENIES PAIN. SAFETY MEASURES IN PLACE. CALL LIGHT IS WITHIN REACH. WILL CONTINUE TO MONITOR.
--- NOTE | 2019-08-17 03:11 | NUR ---
RESTING IN BED WITH EYES CLOSED. NO APPARENT DISTRESS NOTED. NO S/S OF PAIN NOTED. BREATHING EVEN AND UNLABORED ON ROOM AIR. NO SOB NOTED. SAFETY MEASURES IN PLACE. CALL LIGHT IS WITHIN REACH. WILL CONTINUE TO MONITOR
--- NOTE | 2019-08-17 05:16 | NUR ---
CHANGED PATIENT'S RIJ DRESSING. OLD DRESSING WAS COMING LOSE AND SOILED. MASKED PLACED ON PATIENT, CLEANED SITE, AND NEW DRESSING APPLIED USING STERILE TECHNIQUE. PATIENT TOLERATED WELL. NO DISTRESS NOTED. BREATHING EVEN AND UNLABORED. NO C/O PAIN. WILL CONTINUE TO MONITOR.
[2019-08-17 06:00] VITALS: BP 130/85
--- NOTE | 2019-08-17 06:32 | NUR ---
RESTED IN LONG INTERVALS THROUGHOUT THE NIGHT. NO DISTRESS NOTED. BREATHING EVEN AND UNLABORED. NO SOB. NO C/O PAIN THROUGHOUT THE NIGHT. DENIES CHEST PAIN/PRESSURE. IV TO RIJ. PATENT AND INTACT. ALL NEEDS AND CONCERNS ADDRESSED. SAFETY MEASURES IN PLACE. CALL LIGHT IS WITHIN REACH. WILL ENDORSE CARE TO DAY SHIFT RN.
[2019-08-17 06:40] LABS: BASOPHIL % 0.3 % (0-2); PLATELET COUNT 198 x10^3mcL (130-400); RED CELL DISTRIBUTION WIDTH 12.9 % (11.5-14.5)
[2019-08-17 06:54] LABS: CALCIUM 9.3 mg/dL (8.5-10.1); CARBON DIOXIDE 29.5 mmol/L (21-32); CHLORIDE SERUM 99 mmol/L (98-107); CREATININE SERUM 0.9 mg/dL (0.7-1.3); GFR1 > 60 mL/min; GLUCOSE SERUM 112 mg/dL (74-106); POTASSIUM SERUM 4.7 mmol/L (3.5-5.1); SODIUM SERUM 136 mmol/L (136-145)
--- NOTE | 2019-08-17 07:35 | NUR ---
RECEIVED PT IN BED. ASSESSED AND DOCUMENTED. STABLE. NO SOB NOTED. GAURDS AT BEDSIDE. SAFTEY PRECAUTIONS ARE IN PLACE. WILL MONITOR.
[2019-08-17 09:35] VITALS: BP 115/69
[2019-08-17 10:34] VITALS: BP 115/69
--- NOTE | 2019-08-17 13:00 | NUR ---
PT RESTING IN BED COMFORTABLY. DENIES ANY PAIN. GAURDS AT BEDSIDE. STABLE.
[2019-08-17 14:02] VITALS: BP 132/90
[2019-08-17 17:55] VITALS: BP 121/83
--- NOTE | 2019-08-17 19:10 | NUR ---
REPORT RECEIVED FROM DAY SHIFT RN. PATIENT WAS SEE RESTING COMFORTABLY IN BED. NO DISTRESS NOTED. BREATHING EVEN AND UNLABORED ON ROOM AIR. NO SOB OR RESP DISTRESS NOTED. TELE #6- NSR AT 72. DENEIS CHEST PAIN/PRESSURE. NO C/O PAIN. IV TO RIJ- TRIPLE LUMEN. ALL PORTS PATENT AND INTACT. FLUSHES WELL. DRESSING, CDI. COMFORT AND SAFETY MEASURES IN PLACE. BED IS LOCKED AND IN THE LOWEST POSITION. SIDE RAILS UP X2. CALL LIGHT IS WITHIN REACH. WILL CONTINUE TO MONITOR.
--- NOTE | 2019-08-17 19:20 | NUR ---
PT RESTING IN BED COMFORTABLY. DENIES ANY PAIN. STABLE. GAURDS AT BEDSIDE.\ GAVE REPORT TO GAME ENGINEER NURSE.
[2019-08-17 20:29] VITALS: BP 119/81
--- NOTE | 2019-08-18 01:00 | NUR ---
RESTING IN BED. NO DISTRESS NOTED. NO C/O PAIN. BREATHING EVEN AND UNLABORED ON ROOM AIR. CRACKERS GIVEN. SAFETY MEASURES IN PLACE. CALL LIGHT IS WITHIN REACH. WILL CONTINUE TO MONITOR.
--- NOTE | 2019-08-18 03:59 | NUR ---
RESTING IN BED. NO DISTRESS NOTED. NO C/O PAIN. BREATHING EVEN AND UNLABORED. SAFETY MEASURES IN PLACE. CALL LIGHT IS WITHIN REACH. WILL CONTINUE TO MONITOR.
[2019-08-18 05:03] VITALS: BP 105/72
--- NOTE | 2019-08-18 06:39 | NUR ---
RESTING IN LONG INTERVALS THROUGHOUT THE NIGHT W/ AT BEDSIDE. NO ACUTE CHANGES NOTED. NO DISTRESS NOTED. BREATHING EVEN AND UNLABORED ON 2L NC. NO SOB NOTED. C/O BACK PAIN X1. IV TO LAC; SALINE LOCK. PATENT AND INTACT. ALL NEEDS AND CONCERNS ADDRESSED. SAFETY MEASURES IN PLACE. CALL LIGHT IS WITHIN REACH. WILL ENDORSE CARE TO DAY SHIFT RN.
--- NOTE | 2019-08-18 06:39 | NUR ---
RESTING IN LONG INTERVALS THROUGHOUT THE NIGHT. NO ACUTE CHANGES NOTED. NO DISTRESS NOTED. BREATHING EVEN AND UNLABORED ON ROOM AIR. NO SOB NOTED. NO C/O PAIN THROUGHOUT THE NIGHT. DENIES PAIN. IV TO THE RIJ. PATENT AND INTACT. ALL NEEDS AND CONCERNS ADDRESSED. SAFETY MEASURES IN PLACE. CALL LIGHT IS WITHIN REACH. WILL ENDORSE CARE TO DAY SHIFT RN.
[2019-08-18 06:49] LABS: CALCIUM 8.8 mg/dL (8.5-10.1); CARBON DIOXIDE 26.9 mmol/L (21-32); CHLORIDE SERUM 101 mmol/L (98-107); CREATININE SERUM 0.8 mg/dL (0.7-1.3); GFR1 > 60 mL/min; GLUCOSE SERUM 96 mg/dL (74-106); POTASSIUM SERUM 4.2 mmol/L (3.5-5.1); SODIUM SERUM 136 mmol/L (136-145)
--- NOTE | 2019-08-18 08:00 | NUR ---
RECEIVED PATIENT ALERT AND ORIENTED TIMES FOUR. PATIENT HAS IV INTACT TO THE RIGHT IJ AND PATENT AT THIS TIME. TOLERATED DIET AND FLUIDS AND OOB AND GATE IS STRONG AND NO DIZZINESS OR RESIDUAL ISSUES NOTED. VITALS ARE STABLE AT 96.3, 71, 16, 120/79, 97% ON ROOM AIR. ALEKS LEZAMAAS BEEN ON VANCO, SOLUMEDROL AND PECPCID AND NO ADVERSE REACTION NOTED. PATIENT HAS BUN AT 20.0 AND PATIENT AHS BEEN AMBULATORY WITH URINE AND STOOL OUTPUT THAT MEETS HIS NORMAL BASELINE. HE HAS ADVISED ON DOING DRUGS AND THE DANGERS OF 0D ON UNREGULATED DRUGS. ADVISED HE WAS LISSY SOME ONE WAS PAYING ATTENTION AND STEPPED IN AND SAVED HIS LIFE. POSSIBLE DISCHARGE BACK TO SNF. WILL CONTINUE TO MONITOR INDICATED.
[2019-08-18 08:24] VITALS: BP 120/79
[2019-08-18 09:18] LABS: BASOPHIL % 0.1 % (0-2); PLATELET COUNT 196 x10^3mcL (130-400); RED CELL DISTRIBUTION WIDTH 13.2 % (11.5-14.5)
--- NOTE | 2019-08-18 09:30 | NUR ---
PATIENT SEEN BY THE DOCTOR AND PLAN FOR DISCHARGE [facility] TODAY POST BEING SEEN BY MARCY. PATIENT HAS TOLERATED OOB AND IS FULLY ALERT AND NO RESIDUAL SISSUE SEEN. PAIENT ADMITS TO TAKING DRUGS AND HAS BEEN ADVISED HE COULD OF SUCUMED TO THE MEDICAIT[place] AND IF SOMEONE WAS NOT NEAR HE MIGHT BE NOW. PATIENT HAS VITALS AT THIS TIME ARE STABLE AND PATIENT HAS CLEAR BREATH SOUNDS AND BOWEL SOUNDS ACTIVE AND SKIN IS WITHOUT EDEMA AND WAMR AND DRY. MULTIPLE TATOOS NOTED TO THE ARMS, LEGS AND TRUNK. PATIENT HAS NO COMPLAINTS OF PAIN AND GUARDS AT BEDSIDE AND SECURITY HAS BEEN MATAINED.
[2019-08-18 12:12] VITALS: BP 132/82
[2019-08-18 12:42] VITALS: BP 120/79
[2019-08-18] MEDS ORDERED: DIGITEK125 MCG PO (12:51)
[2019-08-18] MEDS ORDERED: LANTUS SOLOS100 U/M1 SC (12:52)
[2019-08-18] MEDS ORDERED: METOPROLOL SUC200 M2 PO (12:52)
[2019-08-18] MEDS ORDERED: AMIODARONE200 MG PO (12:53)
[2019-08-18] MEDS ORDERED: ZESTRIL20 MG PO (12:54)
[2019-08-18] MEDS ORDERED: XARELTO20 M1 PO (12:55)
[2019-08-18] MEDS ORDERED: NOR5 PO (12:57)
[2019-08-18] MEDS ORDERED: LIPI20 PO (12:57)
== END 2019-08-18 15:11 | disposition other institution (70) | DRG 917 ==
LOC: ED 12:17 → IC 14:42 → DU 08-14 17:56
PROVIDERS: Internal Medicine; Student in an Organized Health Care Education/Training Program; ADMIT Internal Medicine
PROC: 5A1945Z Respiratory Ventilation, 24-96 Consecutive Hours (ICD-10-PCS; principal; 2019-08-10)
PROC: 0BH17EZ Insertion of Endotracheal Airway into Trachea, Via Natural or Artificial Opening (ICD-10-PCS; 2019-08-10)
PROC: 02HV33Z Insertion of Infusion Device into Superior Vena Cava, Percutaneous Approach (ICD-10-PCS; 2019-08-10)
PROC: B548ZZA Ultrasonography of Superior Vena Cava, Guidance (ICD-10-PCS; 2019-08-10)
DX: T40.1X1A Poisoning by heroin, accidental (unintentional), initial encounter (principal); J96.01 Acute respiratory failure with hypoxia; J69.0 Pneumonitis due to inhalation of food and vomit; I46.9 Cardiac arrest, cause unspecified; G93.41 Metabolic encephalopathy; B18.2 Chronic viral hepatitis C; J45.909 Unspecified asthma, uncomplicated; E87.6 Hypokalemia; D63.8 Anemia in other chronic diseases classified elsewhere; D69.6 Thrombocytopenia, unspecified; E83.39 Other disorders of phosphorus metabolism; Y92.143 Cell of prison as the place of occurrence of the external cause
CPT/HCPCS: 36600; 87804; 97112-GP; A4628; G0378; G0480; J0330; J1644; J2060; J2250; J2405; J2543; J2704; J2920; J3010; J3370; J3490; J7030; J7040; J7613; J7620; Q0092; Q9967